=== PATIENT | female | born 1990 | race Caucasian/White ===

== ENCOUNTER 2017-08-05 17:38 | Emergency (ER) | payer OTHER ==
[2017-08-05 17:44] VITALS: RESP 18
[2017-08-05] MEDS ORDERED: NS 1,000 ML IV ONE (17:49)
--- NOTE | 2017-08-05 17:53 | EDPHY ---
H & P Stated Complaint: ?4-6 WKS WITH BLEEDING AND PELVIC PAIN Time Seen by Provider: 08/05/17 17:41 - Personal History LMP (Females 10-55): Current Tetanus/Diphtheria Vaccine: No - Medical/Surgical History Hx Asthma: No Hx Chronic Respiratory Disease: No Hx Diabetes: No Hx Cardiac Disease: No Hx Renal Disease: No Hx Cirrhosis: No Hx Alcoholism: No Hx HIV/AIDS: No Hx Splenectomy or Spleen Trauma: No Other PMH: DENIES - Social History Smoking Status: Never smoked Constitutional: Initial Vital Signs Temperature (C) 36.7 C 08/05/17 17:41 Heart Rate 70 08/05/17 17:41 Respiratory Rate 18 08/05/17 17:41 Blood Pressure 131/68 H 08/05/17 17:41 O2 Sat (%) 100 08/05/17 17:41 O2 Delivery Mode Room Air Allergies/Adverse Reactions: No Known Allergies Allergy (Unverified 08/05/17 17:41) Home Medications: Medication Instructions Recorded NK [No Known Home Meds] 08/05/17 Medical Decision Making - Diagnostics Imaging Results: Imaging Impressions Obstetrics Ultrasound 08/05/17 17:50 Impression: Normal pelvic sonogram. No evidence of ectopic . It is likely too early to identify an IUP. Follow-up ultrasound and serial hCG measurements are recommended. This could possibly represent a spontaneous AB. Results discussed with Dr. Dominic Mckenzie at 6:45 PM Imaging: Discussed imaging studies w/ physically impaired teacher Radiologist ED Course/Re-evaluation: CHIEF COMPLAINT: Vaginal bleeding, possible HISTORY OF PRESENT ILLNESS: The patient is a 27 y/o female arriving with her complaining of vaginal bleeding during possible early . She has had vaginal bleeding for the last 1.5 weeks and initially attributed it to her menstrual period since it was associated with abdominal cramping and migraines. The bleeding and cramping worsened yesterday so she completed a home test, which was positive. She thinks she could be 4-6 weeks . No recent illness or trauma. She is normally healthy. REVIEW OF SYSTEMS: A 10 point review of systems was performed and is negative with the exception of the elements mentioned in the history of present illness. PHYSICAL EXAM: HR, BP, O2 Sat, RR. Temp noted General Appearance: Alert, well hydrated, appropriate, and non-toxic appearing. Head: Atraumatic without scalp tenderness or obvious injury Eyes: Pupils equal, round, reactive to light and accommodation, EOMI, no trauma , no injection. Nose: Atraumatic, no rhinorrhea, clear. Throat: Mucus membranes moist. Neck: Supple Respiratory: No retractions, no distress, no wheezes, and no accessory muscle use. Lungs are clear to auscultation bilaterally. Cardiovascular: Regular rate and rhythm, no murmurs, rubs, or gallops. Good capillary refill all extremities. Gastrointestinal: Abdomen is soft, non-tender, non-distended, no masses, no rebound, no guarding, no peritoneal signs. Musculoskeletal: Normal active ROM of all extremities, atraumatic. Neurological: Alert, appropriate, and interactive. The patient has non-focal cranial nerves, motor, sensory, and cerebellar exam. Skin: No rashes, good turgor, no nodules on palpation. PAST MEDICAL HISTORY: PAST SURGICAL HISTORY: Denies SOCIAL HISTORY: at bedside. Lives in [place]. DIAGNOSTICS/PROCEDURES/CRITICAL CARE TIME: Obstetrics US: normal DIFFERENTIAL DIAGNOSIS: The differential diagnosis for the patient's vaginal bleeding included but was not limited to ectopic , menses, miscarriage , and dysfunctional uterine bleeding. MEDICAL DECISION MAKING: This is a normally healthy 27 y/o female who presents with a 1.5-week history of vaginal bleeding in the setting of a positive home test last night. She has associated abdominal cramping and migraine symptoms, which is normal during her menstrual periods. Her abdomen is benign on exam and she is hemodynamically stable. Plan for IV, labs, and obstetrics US. 1L IV NS ordered. BHCG low at 83, indicating likely miscarriage. US is normal, no retained products nor evidence of IUP. Reassessed patient and discussed work up. Abdomen remains benign. Patient will be discharged with standard miscarriage care and follow up instructions. Return precautions discussed. - Data Points Laboratory Results: Laboratory Results 08/05/17 17:54 18 17:54 18 18 18 17:54 17:54 17:54 WBC 6.23 10^3/uL 10^3/uL (3.80-9.50) RBC 4.62 10^6/uL 10^6/uL (4.18-5.33) Hgb 13.5 g/dL g/dL (12.6-16.3) Hct 39.7 % % (38.0-47.0) MCV 85.9 fL fL (81.5-99.8) MCH 29.2 pg pg (27.9-34.1) MCHC 34.0 g/dL g/dL (32.4-36.7) RDW 13.1 % % (11.5-15.2) Plt Count 223 10^3/uL 10^3/uL (150-400) MPV 9.7 fL fL (8.7-11.7) Neut % (Auto) 60.0 % % (39.3-74.2) Lymph % (Auto) 26.5 % % (15.0-45.0) [place] % (Auto) 11.4 % % (4.5-13.0) Eos % (Auto) 1.3 % % (0.6-7.6) Baso % (Auto) 0.5 % % (0.3-1.7) Nucleat RBC Rel Count 0.0 % % (0.0-0.2) Absolute Neuts (auto) 3.74 10^3/uL 10^3/uL (1.70-6.50) Absolute Lymphs (auto) 1.65 10^3/uL 10^3/uL (1.00-3.00) Absolute Monos (auto) 0.71 10^3/uL 10^3/uL (0.30-0.80) Absolute Eos (auto) 0.08 10^3/uL 10^3/uL (0.03-0.40) Absolute Basos (auto) 0.03 10^3/uL 10^3/uL (0.02-0.10) Absolute Nucleated RBC 0.00 10^3/uL 10^3/uL (0-0.01) Immature Gran % 0.3 % % (0.0-1.1) Immature Gran # 0.02 10^3/uL 10^3/uL (0.00-0.10) Sodium 141 mEq/L mEq/L (135-145) Potassium 3.8 mEq/L mEq/L (3.5-5.2) Chloride 102 mEq/L mEq/L (97-110) Carbon Dioxide 27 mEq/l mEq/l (22-31) Anion Gap 12 mEq/L mEq/L (8-16) BUN 7 mg/dL mg/dL (7-23) Creatinine 0.7 mg/dL mg/dL (0.6-1.0) Estimated GFR > 60 Glucose 84 mg/dL mg/dL (70-100) Calcium 9.5 mg/dL mg/dL (8.5-10.4) Beta HCG, Quant 36.81 mIU/mL H mIU/mL (0.00-4.83) Patient ABO/Rh O POSITIVE Departure - Departure Disposition: Home, Routine, Self-Care Clinical Impression: Miscarriage Condition: Good Instructions: Miscarriage (ED) Additional Instructions: 1. Ibuprofen and Tylenol as directed if needed for pain over the next several days. A heating pad can be helpful as well. 2. Follow up with your OBGYN next week. 3. Return to the ED for lightheadedness, severe abdominal pain, fever, fainting , or other worsening of condition. Referrals: Sobeida Garcia MD [Medical Doctor] - As per Instructions Report Scribed for: Dominic Mckenzie Report Scribed by: Madelaine Noriega Date of Report: 08/05/17 Time of Report: 17:46
[2017-08-05 18:08] LABS: PLATELET COUNT 223 10^3/uL (150-400)
[2017-08-05 19:32] VITALS: BP 120/68; PULSE 76; TEMP 97.7; O2SAT 95
== END 2017-08-05 19:32 | disposition home or self-care (01) ==
DX: O20.0 Threatened abortion (principal); Z3A.00 Weeks of gestation of pregnancy not specified